=== PATIENT | female | born 1995 | race Caucasian/White ===

== ENCOUNTER 2021-02-06 18:52 | Emergency (ER) | payer OTHER, SELFPAY ==
[2021-02-06 18:54] VITALS: BP 137/71; PULSE 95; RESP 16; TEMP 36.8; O2SAT 100; BMI 56.5
--- NOTE | 2021-02-06 20:03 | US_ITS ---
STUDY: FIRST TRIMESTER OBSTETRICAL ULTRASOUND REASON FOR EXAM: Female, 25 years old Threatened miscarriage TECHNIQUE: Transvaginal TECHNICAL QUALITY: Adequate. PRIOR ULTRASOUND: None. FINDINGS: There is no demonstrated intrauterine gestational sac. There is no demonstrated yolk sac. The yolk sac measures . The placenta is non-visualized. There is no demonstrated embryo ( pole). The uterus measures 7.9 x 4.7 x 3.6 cm. Septated uterus noted. There is no demonstrated uterine fibroid. The cervix is closed. Tiny amount of fluid seen in the cervical canal. Normal endometrial echoes maximally measuring 10 mm. The right ovary measures 3.5 x 2.8 cm. There is no right ovarian cyst. There is no visualized right adnexal mass or complex lesion. The left ovary measures 3.5 x 2.3 cm. There is no left ovarian cyst. There is no visualized left adnexal mass or complex lesion. There is minimal fluid in the cul de sac. US/Transvaginal w/Preg US IMPRESSION: 1. No IUP or significant pelvic process demonstrated. Electronically Signed: Anirudh Holguin MD at 22:32 EDT , Service support ,
[2021-02-06 20:36] LABS: Absolute Lymphocyte Count 2.88 X10^3/uL (0.83-4.51); Absolute Neutrophil Count 6.2 X10^3/uL (2.0-7.7); Basophil# 0.01 X10^3/uL; Basophil% 0.1 % (0-1); Eosinophil# 0.06 X10^3/uL; Eosinophils% 0.6 % (0-5); Hematocrit 37.8 % (37-47); Hemoglobin 12.8 g/dL (12.0-15.0); Lymphocyte # 2.88 X10^3/ul (0.83-4.51); Lymphocyte % 28.5 % (19-41); Mean Corp Hgb Conc 33.9 g/dL (32-36); Mean Corpuscular Hgb 30.6 pg (27.0-32.0); Mean Corpuscular Volume 90.4 fL (81-99); Mean Platelet Vol. 9.7 fl (6.2-12.0); Monocyte% 8.9 % (0-10); NRBC Flagged by Analyzer 0 % (0-5); Neutrophil # 6.23 X10^3/uL (2.7-7.7); Neutrophil % 61.5 % (47-70); Platelet Count 242 K/mm3 (150-450); RBC Distribution Width CV 11.4 % (11.6-14.6); RBC Distribution Width SD 37.6 fl (35.1-43.9); Red Blood Count 4.18 M/mm3 (4.2-5.4); White Blood Count 10.1 K/mm3 (4.4-11.0)
[2021-02-06] MEDS: 0.9% Normal Saline 1,000 ML 1000 ML IV (20:37)
[2021-02-06 20:50] LABS: Bacteria 0 SEEN /hpf (None Seen); Mucous, Urine 0 SEEN /hpf (<or=2+); White Blood Cells 0 SEEN /hpf (0-5)
[2021-02-06 20:58] LABS: Color, Urine Yellow (Yellow); Glucose, Dipstick Normal (Normal); Ketone-Dipstick Negative (Negative); Leukocyte Esterase-Dipstick Negative /ul (Negative); Nitrite-Dipstick Negative (Negative); Occult Blood-Urine 250 /ul (Negative); Protein-Dipstick Negative (Negative); Urine Bilirubin Dipstick Negative (Negative); Urine Clarity Sl. Cloudy (Clear); Urine Urobilinogen Normal (Normal); Urine pH 6.5 (5.0 - 8.0)
[2021-02-06 20:58] LABS: hCG Titer Quant., Serum 11 mIU/mL (1-3)
[2021-02-06 21:17] LABS: Red Blood Cells-Urine 25-50 SEEN /hpf (0-5); Squamous Epithelial Cells - UA 0-5 SEEN /hpf (5-10)
[2021-02-06 21:32] VITALS: BP 119/80; PULSE 88; RESP 16; O2SAT 98
--- NOTE | 2021-02-06 21:32 | NURSING ---
patient has returned to floor from us
[2021-02-06 23:32] VITALS: O2SAT 97
[2021-02-06 23:33] VITALS: BP 116/72; PULSE 87; RESP 15; O2SAT 95
--- NOTE | 2021-02-07 01:15 | EDS_ITS ---
HPI HPI - Female History of Present Illness Chief Complaint: Vag Bld, Preg Pain Pain: Positive for Pelvic Pain Onset: Today Context: Gradual Onset Timing: Continuous Quality: Positive for Cramping Location: Suprapubic Worsened by: - (Nothing) Relieved by: - (Nothing) Bleeding Issue: Positive for Vaginal bleeding and Passing clots Onset: Today Timing: Continuous Associated Symptoms Associated Symptoms: Negative for Dysuria and Hematuria Test: Positive Narrative Narrative: Patient presents with vaginal bleeding and cramping that began today. Patient states she had a recent positive test. Patient states her last menstrual period ended approximately 6 weeks ago. Patient states she has been having some lower abdominal cramping. Patient states today she noted some dark vaginal bleeding. Patient states her normal menstrual periods are irregular. Patient denies any fevers or chills. Patient admits to nausea but denies any vomiting. PFSH PFSH no medical history Home Medications vit-ferrous sulfat-FA [] 1 tab PO DAILY 02/06/21 [History Last Taken Unknown] Allergy/AdvReac Type Severity Reaction Status Date / Time No Known Allergies Allergy Verified 02/06/21 18:53 no surgical history Social History Smoking Status: Former smoker ROS ROS ED Constitutional Constitutional ED: Denies chills or fever(s) Eyes Eyes: Denies blurry vision or change in vision ENT ENT ED: Denies rhinorrhea or sore throat Cardiovascular Cardiovascular: Denies chest pain or palpitations Respiratory/Chest Respiratory/Chest: Denies cough or dyspnea Gastrointestinal Gastrointestinal: Reports abdominal pain and nausea; Denies vomiting Genitourinary Genitourinary ED: Denies dysuria or hematuria Musculoskeletal Musculoskeletal: Reports back pain; Denies neck pain Integumentary Denies abscess or rash Neurologic Neurologic: Denies headache(s) or weakness Allergic/Immunologic Allergic/Immunologic ED: Denies mouth swelling or urticaria EXAM Physical Exam Const Vital Signs: 02/06/21 18:54 02/06/21 21:32 02/06/21 23:32 Temperature 98.2 F Temperature Source Temporal Pulse Rate 95 88 Respiratory Rate 16 16 Blood Pressure 137/71 H 119/80 Blood Pressure Mean 93 93 Pulse Ox 100 98 97 Oxygen Delivery Method Room Air Room Air Room Air 02/06/21 23:33 Temperature Temperature Source Pulse Rate 87 Respiratory Rate 15 Blood Pressure 116/72 Blood Pressure Mean Pulse Ox 95 Oxygen Delivery Method Positive well nourished and well developed General Appearance ED: well developed HEENT Reports moist mucous membranes Neck supple and no JVD Resp normal respiratory effort and clear to auscultation bilaterally Cardio regular rate and regular rhythm GI normal to inspection, nondistended, normoactive bowel sounds and soft to palpation Palpation: tender suprapubic; Negative for guarding Neuro oriented x3, CN's II-XII intact bilaterally and no sensory deficits noted Sensorium / Orientation: alert Psych mental status grossly normal MDM MDM MDM Narrative Medical decision making narrative: Patient was given IV fluids. CBC was within normal limits. Quantitative hCG was 11. Blood type and Rh was O-. Urinalysis does not show any evidence of urinary tract infection. Pelvic ultrasound was ordered. There is no acute pelvic abnormality. There is no evidence of intrauterine . This was interpreted by the radiologist and reviewed by myself. Patient was advised of her findings. Patient was advised that this is most likely a miscarriage. Patient was instructed to follow-up with her primary care physician and [facility] in 5 to 7 days. Patient understood and was agreeable with the plan. All questions were answered. Lab Data Attestation: I reviewed the patient's lab results. Labs: Laboratory Results - last 24 hr 02/06/21 02/06/21 02/06/21 20:25 20:25 20:25 WBC 10.1 RBC 4.18 L Hgb 12.8 Hct 37.8 MCV 90.4 MCH 30.6 MCHC 33.9 RDW Std Deviation 37.6 RDW Coeff of Luis Miguel 11.4 L Plt Count 242 MPV 9.7 Immature Gran % (Auto) 0.400 Neut % (Auto) 61.5 Lymph % (Auto) 28.5 [place] % (Auto) 8.9 Eos % (Auto) 0.6 Baso % (Auto) 0.1 Absolute Neuts (auto) 6.2 Absolute Lymphs (auto) 2.88 Nucleated RBC % 0 HCG, Quant 11 H Urine Color Urine Clarity Urine pH Ur Specific [place] Urine Protein Urine Glucose (UA) Urine Ketones Urine Occult Blood Urine Nitrite Urine Bilirubin Urine Urobilinogen Ur Leukocyte Esterase Urine RBC Urine WBC Ur Squamous Epith Cells Urine Bacteria Urine Mucus Blood Type O NEGATIVE 02/06/21 20:35 WBC RBC Hgb Hct MCV MCH MCHC RDW Std Deviation RDW Coeff of [place] Plt Count MPV Immature Gran % (Auto) Neut % (Auto) Lymph % (Auto) [place] % (Auto) Eos % (Auto) Baso % (Auto) Absolute Neuts (auto) Absolute Lymphs (auto) Nucleated RBC % HCG, Quant Urine Color Yellow Urine Clarity Sl. Cloudy Urine pH 6.5 Ur Specific [place] 1.010 Urine Protein Negative Urine Glucose (UA) Normal Urine Ketones Negative Urine Occult Blood 250 H Urine Nitrite Negative Urine Bilirubin Negative Urine Urobilinogen Normal Ur Leukocyte Esterase Negative Urine RBC 25-50 SEEN Urine WBC 0 SEEN Ur Squamous Epith Cells 0-5 SEEN Urine Bacteria 0 SEEN Urine Mucus 0 SEEN Blood Type Radiography Diagnostic Testing: Radiology Impression Obstetrics Ultrasound 02/06/21 20:03 IMPRESSION: 1. No IUP or significant pelvic process demonstrated. Electronically Signed: Anirudh Holguin MD at 22:32 EDT , Service support , Discharge Plan Triage Chief Complaint: Vag Bld, Preg ED Provider: Don Key Dx/Rx/DC Orders Clinical Impression: Miscarriage Instructions: ED MISCARRIAGE Incomplete Prescriptions: No Action 27 mg iron- 0.8 mg Tablet 1 tab PO DAILY RF: 0 Referrals: [facility] [Other] - 3-5 Days Disposition Disposition: Home, self care Discharge Date/Time: 02/06/21 23:33
== END 2021-02-06 23:33 | disposition home or self-care (01) ==
PROVIDERS: Emergency Provider Emergency Medicine
DX: O03.9 Complete or unspecified spontaneous abortion without complication (principal); Z87.891 Personal history of nicotine dependence
CPT/HCPCS: 76817; 81001; 84702; 85025; 86900; 86901; 96360; 96361; 99284; J7030